=== PATIENT | female | born 1985 | race Caucasian/White ===

== ENCOUNTER 2016-12-06 14:06 | Inpatient (IN) | payer BC ==
[~2016-12-06] VITALS: Ht 160 cm; Wt 70.7 kg
[2016-12-06] VITALS (34 sets, daily range): BP systolic 111–159; BP diastolic 58–92
[2016-12-06 18:38] LABS: EOSINOPHIL (%) 0.6 % (0-5); EOSINOPHIL COUNT 0.1 K/uL (0-0.3); HEMATOCRIT 35.9 % (36.0-46.0); IMMATURE GRANULOCYTE (%) 0.3 % (0.0-0.7); LYMPHOCYTE COUNT 1.8 K/uL (1.0-2.8); MCH 29.9 PG (29.0-34.0); MCHC 32.6 G/DL (30.0-36.0); MCV 91.8 FL (83-99); MEAN PLAT.VOLUME 10.8 uM^3 (9.5-12.4); MONOCYTE (%) 7.7 % (3-12); NEUTROPHIL (%) 77.9 % (45-76); NEUTROPHIL COUNT 10.3 K/uL (1.8-6.4); PLATELET COUNT 244 K/uL (156-360); RBC DIS.WIDTH-CV 13.8 % (11.8-14.6); RBC DIS.WIDTH-SD 45.1 % (39-53); RED BLOOD COUNT 3.91 M/uL (3.80-5.20); WHITE BLOOD COUNT 13.2 K/uL (4.1-10.2)
[2016-12-07] VITALS (14 sets, daily range): BP systolic 107–166; BP diastolic 55–88
[2016-12-08 06:47] LABS: EOSINOPHIL (%) 2.6 % (0-5); EOSINOPHIL COUNT 0.3 K/uL (0-0.3); HEMATOCRIT 31.3 % (36.0-46.0); IMMATURE GRANULOCYTE (%) 0.2 % (0.0-0.7); LYMPHOCYTE COUNT 2.1 K/uL (1.0-2.8); MCH 30.2 PG (29.0-34.0); MCHC 32.6 G/DL (30.0-36.0); MCV 92.6 FL (83-99); MEAN PLAT.VOLUME 11.3 uM^3 (9.5-12.4); MONOCYTE (%) 6.3 % (3-12); MONOCYTE COUNT 0.8 K/uL (0-0.8); NEUTROPHIL (%) 73.5 % (45-76); NEUTROPHIL COUNT 9.2 K/uL (1.8-6.4); PLATELET COUNT 203 K/uL (156-360); RBC DIS.WIDTH-CV 14.1 % (11.8-14.6); RBC DIS.WIDTH-SD 46.8 % (39-53); RED BLOOD COUNT 3.38 M/uL (3.80-5.20); WHITE BLOOD COUNT 12.5 K/uL (4.1-10.2)
[2016-12-08 07:37] VITALS: BP 119/73
[2016-12-08 15:11] VITALS: BP 126/75
[2016-12-08 23:17] VITALS: BP 136/72
[2016-12-09] MEDS ORDERED: PRENATAL VITAM1 EA11 PO (06:05)
[2016-12-09] MEDS ORDERED: BUTALBITAL-ACE1 EACH PO (06:09)
[2016-12-09 08:30] VITALS: BP 121/76
[2016-12-09 15:10] VITALS: BP 122/76
[2016-12-09] MEDS ORDERED: CHILDREN'S100 MG/51 PO (17:12)
== END 2016-12-09 19:05 | disposition home or self-care (01) | DRG 775 ==
LOC: LDRP-OP → 2WEST 14:07 → LDRP-OP 01-10 14:22
PROVIDERS: Advanced Practice Midwife
DX: O77.0 Labor and delivery complicated by meconium in amniotic fluid (principal); Z37.0 Single live birth; Z3A.39 39 weeks gestation of pregnancy
CPT/HCPCS: 85025; C1755; G0378; J3010; J7120